=== PATIENT | female | born 1975 | race Caucasian/White ===

== ENCOUNTER 2016-03-02 22:37 | Emergency (ER) | payer MEDICAID ==
[~2016-03-02] VITALS: Ht 157.5 cm; Wt 58.5 kg
[2016-03-02 22:59] VITALS: BP 168/95
== END 2016-03-03 00:37 | disposition home or self-care (01) ==
LOC: ER 22:50
DX: B34.9 Viral infection, unspecified (principal); Z88.2 Allergy status to sulfonamides

== ENCOUNTER 2016-03-03 22:44 | Emergency (ER) | payer MEDICAID ==
[~2016-03-03] VITALS: Ht 162.6 cm; Wt 59.0 kg
[2016-03-03 23:00] VITALS: BP 154/104
== END 2016-03-04 02:48 | disposition home or self-care (01) ==
LOC: ER 22:52
DX: B34.9 Viral infection, unspecified (principal); Z88.2 Allergy status to sulfonamides

== ENCOUNTER 2016-10-20 21:00 | Emergency (ER) | payer MEDICAID ==
[~2016-10-20] VITALS: Ht 160 cm; Wt 59.4 kg
[2016-10-20 21:05] VITALS: BP 170/115
[2016-10-20 21:29] LABS: Urine RBC None Seen /hpf (0 - 4)
[2016-10-20] MEDS ORDERED: cloNIDine HCL 0.1 MG TAB PO ONE (21:30)
[2016-10-20 21:41] LABS: Urine Bilirubin Negative (Negative); Urine Blood Negative /uL (Negative); Urine Color Colorless (Yellow); Urine Glucose Normal (Normal); Urine Ketone Negative (Negative); Urine Nitrite Negative (Negative); Urine Squamous Epithelial Cell FEW /hpf (<5); Urine Urobilinogen Normal (Negative); Urine pH 5.5 (5.0-8.0)
[2016-10-20 21:41] LABS: Basophils # (auto) 0 uL; Basophils % (auto) 0.6 % (0.0-2.0); CONDITION Y; Eosinophils # (auto) 0 uL; Eosinophils % (auto) 0.2 % (0.0-7.0); Hematocrit 38.7 % (36.0-46.0); Hemoglobin 13.1 g/dL (12.2-16.2); Lymphocytes # (auto) 1.9 uL; Lymphocytes % (auto) 28.8 % (10.0-50.0); Mean Corpuscular Hemoglobin 31.5 pg (28.0-32.0); Mean Corpuscular Hgb Conc. 33.8 g/dL (32.0-36.0); Mean Corpuscular Volume 93.4 fL (80.0-100.0); Mean Platelet Volume 7.3 fL (7.4-10.4); Monocytes # (auto) 0.3 uL; Monocytes % (auto) 5.1 % (0.0-12.0); Neutrophils # (auto) 4.3 uL; Neutrophils % (auto) 65.3 % (37.0-80.0); Platelet Count (auto) 292 10^3/uL (140-450); Red Cell Distribution Width 14.1 % (11.6-16.0); White Blood Cell 6.6 10^3/uL (4.4-10.8)
[2016-10-20 22:04] LABS: INR 0.96 (0.9-1.15); Partial Thromboplastin Time 25.5 sec (22.64-33.71); Prothrombin Time 10.5 sec (9.37-12.3)
[2016-10-20 22:14] LABS: Albumin 4.2 g/dL (3.4-5.0); BUN/Creatinine Ratio 12.7; Calcium 7.9 mg/dL (8.5-10.1); Potassium 3.7 mmol/L (3.5-5.1)
[2016-10-20 22:17] LABS: Bilirubin, Total 0.3 mg/dL (0.2-1.0); Total Protein 7.9 g/dL (6.4-8.2)
== END 2016-10-20 22:46 ==
LOC: ER 21:02
DX: I10 Essential (primary) hypertension (principal); Z02.89 Encounter for other administrative examinations; V49.29XA Unspecified car occupant injured in collision with other motor vehicles in nontraffic accident, initial encounter; Y93.89 Activity, other specified; Y99.8 Other external cause status; Y92.410 Unspecified street and highway as the place of occurrence of the external cause
CPT/HCPCS: 36415; 70450; 80053; 80307; 80320; 81001; 81025; 85025; 85610; 85730